=== PATIENT | male | born 1980 | race Caucasian/White ===

== ENCOUNTER 2017-06-07 08:45 | Emergency (ER) | payer MEDICAID ==
[~2017-06-07] VITALS: Ht 172.7 cm; Wt 85.0 kg
[2017-06-07] MEDS ORDERED: ATEN25TA PO (08:48)
[2017-06-07] MEDS ORDERED: ATOR10TA84 PO (08:48)
[2017-06-07] MEDS ORDERED: ASPI81 PO (08:48)
[2017-06-07 09:37] LABS: ANION GAP 12 mmol/L (8-16); CALCIUM, TOTAL 9.3 mg/dL (8.8-10.5); CARBON DIOXIDE 27 mmol/L (22-29); CHLORIDE 99 mmol/L (98-107); CREATININE 0.52 mg/dL (0.60-1.30); GLOMERULAR FILTR. RATE CALC > 60 mL/min (>60); POTASSIUM 3.7 mmol/L (3.5-5.1); SODIUM SERUM 138 mmol/L (136-145); UREA NITROGEN, BLOOD 11 mg/dL (7-18)
[2017-06-07 09:40] LABS: BASOPHILS % (AUTO) 0.7 % (0.0-2.0); EOSINOPHILS % (AUTO) 4.1 % (1.0-6.0); HEMATOCRIT 41.1 % (41-53); HEMOGLOBIN 14.3 g/dL (13.5-17.5); LYMPHOCYTES # (AUTO) 1.9 K/uL (1.0-4.8); LYMPHOCYTES % (AUTO) 24.4 % (22.0-44.0); MEAN CORPUSCULAR HEMOGLOBIN 31.3 pg (26.0-34.0); MEAN CORPUSCULAR HGB CONC 34.7 G/dL (31.0-37.0); MEAN CORPUSCULAR VOLUME 90 fL (80-100); MONOCYTES # (AUTO) 0.4 K/uL (0.1-1.0); MONOCYTES % (AUTO) 4.8 % (2.0-9.0); NEUTROPHILS # (AUTO) 5.1 K/uL (1.8-7.7); PLATELET COUNT (AUTO) 264 K/uL (150-450); RED BLOOD CELL COUNT(AUTO) 4.56 MIL/uL (4.50-5.90); RED CELL DISTRIBUTION WIDTH 12.5 % (11.5-14.5); WHITE BLOOD COUNT (AUTO) 7.7 K/uL (4.5-11.0)
[2017-06-07 09:50] LABS: INR 0.9 (0.9-1.1)
[2017-06-07] MEDS ORDERED: ACETAMINOPHEN 500 MG TABLET PO ONE (10:00)
[2017-06-07] MEDS ORDERED: ASPIRIN 325 MG TABLET PO ONE (10:00)
[2017-06-07 10:02] LABS: ALANINE AMINOTRANSFERASE 55 U/L (12-78); ALBUMIN 4.5 g/dL (3.4-5.0); ASPARTATE AMINOTRANSFERASE 44 U/L (15-37); BILIRUBIN,TOTAL 1.4 mg/dL (0.1-1.0); CREATINE KINASE MB 0.6 ng/mL (0-5); CREATINE KINASE, TOTAL 208 U/L (39-308); TOTAL PROTEIN, SERUM 8.7 g/dL (6.4-8.2)
[2017-06-07 10:05] LABS: B-TYPE NATRIURETIC PEPTIDE 10 pg/mL (0-100)
[2017-06-07 10:18] VITALS: BP 152/87
[2017-06-07 10:26] LABS: APPEARANCE,URINE CLEAR (CLEAR); GLUCOSE, URINE (UA) NEGATIVE (NEGATIVE); KETONES,URINE NEGATIVE (NEGATIVE); LEUKOCYTE ESTERASE ,URINE NEGATIVE (NEGATIVE); OCCULT BLOOD,URINE NEGATIVE (NEGATIVE); PROTEIN,URINE NEGATIVE (NEGATIVE)
[2017-06-07 10:27] LABS: ADD UA MICROSCOPIC NO
== END 2017-06-07 10:25 | disposition home or self-care (01) ==
LOC: EMS 08:48
DX: R07.9 Chest pain, unspecified (principal); E78.00 Pure hypercholesterolemia, unspecified; I10 Essential (primary) hypertension; Z79.82 Long term (current) use of aspirin
CPT/HCPCS: 93005; 99285

== ENCOUNTER 2023-09-09 05:14 | Emergency (ER) | payer MEDICAID, OTHER ==
[~2023-09-09] VITALS: Ht 172.7 cm; Wt 104.5 kg
[~2023-09-09 05:14] MED LIST: ASPI-1450 PO; ATEN-73 PO; ATOR10TA PO
[2023-09-09 05:23] VITALS: TEMP 98.2
[2023-09-09] MEDS: IBUPROFEN 600 MG TABLET PO ONE (06:12)
[2023-09-09 07:30] VITALS: BP 146/91; PULSE 98; RESP 16
[2023-09-09] MEDS ORDERED: IBUP-1492 PO (07:38)
== END 2023-09-09 07:46 | disposition home or self-care (01) ==
LOC: EMS 05:16
DX: S40.012A Contusion of left shoulder, initial encounter (principal); S70.12XA Contusion of left thigh, initial encounter; S70.02XA Contusion of left hip, initial encounter; E78.00 Pure hypercholesterolemia, unspecified; I10 Essential (primary) hypertension; F17.210 Nicotine dependence, cigarettes, uncomplicated; X58.XXXA Exposure to other specified factors, initial encounter; Y93.89 Activity, other specified; Y92.89 Other specified places as the place of occurrence of the external cause; Y99.8 Other external cause status
CPT/HCPCS: 99284; 73030-TC; 73552-LT; Z7502; Z7610